=== PATIENT | female | born 1960 | race Caucasian/White ===

== ENCOUNTER 2021-07-13 10:29 | Emergency (ER) | payer OTHER ==
[~2021-07-13] VITALS: Ht 157.5 cm; Wt 104.3 kg
[2021-07-13 10:35] VITALS: BP 124/78
--- NOTE | 2021-07-13 10:43 | NUR ---
Patient wheelchair assisted to bed 06 with family.
--- NOTE | 2021-07-13 10:50 | NUR ---
Meds: famotidine, levothyroxine, atorvastatin
--- NOTE | 2021-07-13 10:50 | NUR ---
60 y/o F BIB daughter c/o dizziness, nausea and dry heaving since 0930 this morning. Patient A&Ox4, states acute onset of symptoms after taking a shower. Pt states muffled hearing loss to left ear, intermittent low back pain and slight headache. Denies medications prior to arrival. Denies chest pain, shortness of breath, fever/chills, vomiting, constipation, dysuria, numbness, injury. Bed locked in lowest position, side rails x 1. Daughter at bedside. pmh: thyroid dse, hld, gerd meds: unrecalled nka
--- NOTE | 2021-07-13 11:23 | NUR ---
Dr. Boyer is evaluating pt at bedside
[2021-07-13] MEDS ORDERED: NACL 0.9% 1,000 ML IV ONE (11:40)
[2021-07-13] MEDS ORDERED: LORazepam 2 MG/ML VIAL IVP ONE (11:40)
[2021-07-13] MEDS ORDERED: ONDANSETRON 4 MG/2 ML VIAL IVP ONE (11:40)
--- NOTE | 2021-07-13 11:45 | NUR ---
Pt transported to CT by marv
--- NOTE | 2021-07-13 11:55 | NUR ---
Patient returned from CT from [facility].
[2021-07-13 12:36] LABS: BASOPHILS # (AUTO) 0.2 K/uL (0.00-0.22); BASOPHILS % (AUTO) 1.8 % (0.0-2.0); EOSINOPHILS % (AUTO) 0.2 % (0.0-4.0); HEMATOCRIT 39.2 % (36-48); HEMOGLOBIN 13.1 g/dL (12.0-16.0); LYMPHOCYTES # (AUTO) 0.8 K/uL (2.5-16.5); LYMPHOCYTES % (AUTO) 8.6 % (20.5-51.1); MEAN CORPUSCULAR HEMOGLOBIN 31 pg (27-31); MEAN CORPUSCULAR HGB CONC 33 g/dL (33-37); MEAN CORPUSCULAR VOLUME 92.8 fL (80-94); MONOCYTES # (AUTO) 0.4 K/uL (0.8-1.0); MONOCYTES % (AUTO) 4.8 % (1.7-9.3); NEUTROPHILS # (AUTO) 7.9 K/uL (1.8-7.7); NEUTROPHILS % (AUTO) 84.6 % (42.2-75.2); PLATELET COUNT (AUTO) 293 K/uL (140-450); RED BLOOD CELL COUNT(AUTO) 4.23 MIL/uL (4.20-5.40); RED CELL DISTRIBUTION WIDTH 13.2 % (11.6-13.7); WHITE BLOOD COUNT (AUTO) 9.3 K/uL (4.8-10.8)
[2021-07-13 12:58] LABS: ALBUMIN 3.7 g/dL (3.4-5.0); ANION GAP 14.3 (8-16); CARBON DIOXIDE 25.9 mmol/L (21-32); CREATININE 0.9 mg/dL (0.6-1.3); POTASSIUM 4.2 mmol/L (3.5-5.1); TOTAL BILIRUBIN 0.8 mg/dL (0.0-1.0)
[2021-07-13 13:30] VITALS: BP 111/81
--- NOTE | 2021-07-13 13:50 | NUR ---
Patient road tested; ambulated 40 steps with steady/even gait. Denies dizzinesss.
[2021-07-13] MEDS ORDERED: ONDA-188 SL (13:52)
[2021-07-13] MEDS ORDERED: MECL-303 PO (13:52)
--- NOTE | 2021-07-13 14:20 | NUR ---
Chart checked and completed. The patient's care was reviewed and supervised by Giovanni Moyer, RN, RN.
--- NOTE | 2021-07-13 14:22 | NUR ---
Patient discharged with v/s stable. Written and verbal after care instructions given. Patient alert, oriented and verbalized understanding of instructions. Ambulatory with steady gait. All questions addressed prior to discharge. ID band removed. Patient advised to follow up with PMD. Rx of Meclizine and Zofran given. Opportunity to ask questions provided and answered.
== END 2021-07-13 14:22 | disposition home or self-care (01) ==
LOC: MED 10:29
DX: R42 Dizziness and giddiness (principal); R11.0 Nausea; K21.9 Gastro-esophageal reflux disease without esophagitis; E78.5 Hyperlipidemia, unspecified; E03.9 Hypothyroidism, unspecified; Z79.899 Other long term (current) drug therapy
CPT/HCPCS: 36415; 70450; 71045; 80053; 83690; 84484; 85025; 96361; 96374; 96375; 99285; J2060; J2405; 93005; J7030

== ENCOUNTER 2021-08-22 10:06 | Emergency (ER) | payer OTHER ==
[~2021-08-22] VITALS: Ht 157.5 cm; Wt 104.3 kg
[~2021-08-22 10:06] MED LIST: MECL-303 PO; ONDA-188 SL
[2021-08-22 10:10] VITALS: BP 149/64
--- NOTE | 2021-08-22 10:20 | NUR ---
Patient ambulated to bed 12 with steady/even gait
--- NOTE | 2021-08-22 10:30 | NUR ---
60 Y/O FEMALE BIB SELF C/O DIZZINESS X5DAYS, STATES THAT THEY BELIEVE THEY HAVE ANXIETY, NO MEDICATION FOR ANXIETY. 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 PMH; ANXIETY, GERD, HYPOTHYROIDISM, HYPERCHOLESTEROL NKA
[2021-08-22] MEDS ORDERED: MECLIZINE 25 MG TAB PO ONE (11:55)
[2021-08-22] MEDS ORDERED: MECL-303 PO (12:13)
--- NOTE | 2021-08-22 12:38 | NUR ---
LAB AT BEDSIDE
[2021-08-22 12:57] LABS: BASOPHILS # (AUTO) 0.1 K/uL (0.00-0.22); BASOPHILS % (AUTO) 0.9 % (0.0-2.0); EOSINOPHILS % (AUTO) 0.3 % (0.0-4.0); HEMOGLOBIN 13.2 g/dL (12.0-16.0); LYMPHOCYTES # (AUTO) 1.7 K/uL (2.5-16.5); MEAN CORPUSCULAR HEMOGLOBIN 31 pg (27-31); MEAN CORPUSCULAR HGB CONC 34 g/dL (33-37); MEAN CORPUSCULAR VOLUME 92.3 fL (80-94); MONOCYTES # (AUTO) 0.6 K/uL (0.8-1.0); MONOCYTES % (AUTO) 8.5 % (1.7-9.3); NEUTROPHILS # (AUTO) 4.5 K/uL (1.8-7.7); NEUTROPHILS % (AUTO) 65.3 % (42.2-75.2); PLATELET COUNT (AUTO) 302 K/uL (140-450); RED BLOOD CELL COUNT(AUTO) 4.22 MIL/uL (4.20-5.40); WHITE BLOOD COUNT (AUTO) 6.9 K/uL (4.8-10.8)
[2021-08-22 13:46] LABS: ALBUMIN 3.6 g/dL (3.4-5.0); ANION GAP 13.6 (8-16); CARBON DIOXIDE 23.9 mmol/L (21-32); POTASSIUM 3.5 mmol/L (3.5-5.1); THYROID STIMULATING HORMONE 1.65 uIU/mL (0.34-3.74); TOTAL BILIRUBIN 0.8 mg/dL (0.0-1.0)
[2021-08-22 14:30] VITALS: BP 139/77
--- NOTE | 2021-08-22 14:32 | NUR ---
Patient discharged with v/s stable. Written and verbal after care instructions given and explained. Patient alert, oriented and verbalized understanding of instructions. Ambulatory with steady gait. All questions addressed prior to discharge. ID band removed. Patient advised to follow up with PMD. Rx of MECLEZINE given. Patient educated on indication of medication including possible reaction and side effects. Opportunity to ask questions provided and answered.
[2021-08-22 14:56] LABS: APPEARANCE,URINE HAZY (CLEAR); BLOOD, URINE NEGATIVE (NEGATIVE); COLOR,URINE STRAW (YELLOW); UGLUCOSE NEGATIVE (NEGATIVE)
[2021-08-22 14:57] LABS: BILIRUBIN,URINE NEGATIVE (NEGATIVE); LEUKOCYTE ESTERASE ,URINE 3+ (NEGATIVE); NITRITE, URINE NEGATIVE (NEGATIVE)
[2021-08-22 15:07] LABS: RBC,URINE NONE SEEN /HPF (0-5)
== END 2021-08-22 14:32 | disposition home or self-care (01) ==
LOC: MED 10:06
DX: R42 Dizziness and giddiness (principal); K21.9 Gastro-esophageal reflux disease without esophagitis; E03.9 Hypothyroidism, unspecified; F41.9 Anxiety disorder, unspecified; Z79.899 Other long term (current) drug therapy
CPT/HCPCS: 36415; 80053; 81001; 84443; 85025; 87086; 99285; J8597